=== PATIENT | male | born 1955 | race Caucasian/White ===

== ENCOUNTER 2020-11-22 00:32 | Outpatient (CLI) | payer MEDICARE, OTHER, SELFPAY ==
[2020-11-22 19:06] LABS: SARS-CoV-2 RNA PCR Negative
== END 2020-11-22 00:33 | disposition home or self-care (01) ==
LOC: ANHCOVIDDT 00:33
PROVIDERS: PCP Internal Medicine; Visit Provider Internal Medicine Cardiovascular Disease
DX: Z01.812 Encounter for preprocedural laboratory examination (principal); Z20.822 Contact with and (suspected) exposure to COVID-19
CPT/HCPCS: C9803; U0003

== ENCOUNTER 2020-11-25 05:16 | Day surgery (SDC) | payer MEDICARE, OTHER, SELFPAY ==
[2020-11-24 13:30] VITALS: BMI 25.2
[2020-11-25] VITALS (14 sets, daily range): BP systolic 121–170; BP diastolic 73–108; PULSE 41–91; RESP 10–18; TEMP 36.6; O2SAT 94–100; BMI 25.4
--- NOTE | 2020-11-25 10:18 | P.SEDATION_ITS ---
Moderate Sedation Note-Pt Data Patient Data Diagnosis: Aortic regurgitation Present Complaint: None History and physical examination up date: Patient is a very pleasant 65-year-old male with a history of syncope and near-syncope, incidental diagnosis of atrial fibrillation with RVR status post treadmill exercise stress test who underwent 2D echocardiogram which revealed [id number] eccentric turbulent aortic regurgitation referred for transesophageal echocardiogram for further clarification. Impression/plan: Unexpected extension [id number] aortic regurgitation on 2D echocardiogram History of recurrent near-syncope and syncope Paroxysmal atrial fibrillation Transesophageal echocardiogram for further clarification aortic regurgitation and associated aortic valve pathology. Procedure to be performed/Plan: Transesophageal echocardiogram Allergies Allergy/AdvReac Type Severity Reaction Status Date / Time No Known Allergies Allergy Verified 11/24/20 13:39 Home Medications Medication Instructions Recorded Confirmed Type aspirin 325 mg PO DAILY 11/24/20 11/24/20 History Current Medications: Active Medications Sodium Chloride (Normal Saline Iv) 1,000 mls @ 30 mls/hr IV CONT .Q24H QAMAR Sedation/Anesthesia: No previous sedation/anesthesia problems (including family history). [facility] Past Medical History Medical History Aortic regurgitation History of syncope Hypertension Social History Social History Smoking status: Never smoker Alcohol intake: current Drinks per week: 4 Alcohol use details: wine with dinner every other night Substance use: never Substance use type: does not use Living arrangements: with family Gender identity (if verbalized by the patient): Male Sexual Orientation (if Verbalized by the Patient): Straight or Heterosexual Spiritual care concerns: No Mod Sed Physical Exam Physical Exam Pre Procedural Exam: Normal: Appearance, Eyes, Ears, Nose, Neck (Supple, normal range of motion), Throat (Posterior hypopharynx clear, nonerythematous), Airway (Normal anatomy, no obstruction), Lungs (Clear to auscultation bilaterally), Heart Size, Heart Rate, Heart Rhythm, Neuro Exam, Abdomen, Liver, Kidneys, Extremities and Skin Hours since solid foods: 12 Hours since liquid intake: 12 Internal Medicine - PN: Obj Da Vital Signs Vital Signs: Vital Signs - 24 hr 11/25/20 09:07 Temperature 36.6 C Pulse Rate 68 Respiratory Rate 16 Blood Pressure 160/93 H Pulse Oximetry 100 Meds/Results Medications: Active Medications Generic Name Dose Route Start Last Admin Trade Name Freq PRN Reason Stop Dose Admin Sodium Chloride 1,000 mls @ 30 mls/hr 11/25/20 06:40 Normal Saline Iv IV CONT .Q24H QAMAR ASA Classification/Sedation ASA Classification/Sedation ASA Class: III Emergent: No Risks: Risks, benefits and alternatives explained and patient/family accepted plan for sedation. Patient re-evaluated immediately prior to sedation.
--- NOTE | 2020-11-25 10:20 | WPDHPUPDATE1 ---
History and Physical Update Update Date/Time: 11/25/20 10:20 History and Physical has been reviewed, including an updated exam of the patient. There are NO changes in the patient's condition. Risks, benefits, and alternatives have been discussed and questions answered. Patient agrees to proceed with procedure.
--- NOTE | 2020-11-25 11:30 | WPDTEECHO ---
[facility] TransEsophageal Echocardiogram Date of procedure: 11/25/20 Procedure Type: Transesophageal echocardiogram Diagnosis: Aortic regurgitation Indications: Aortic regurgitation Image Quality: Good Findings: Brief history present illness: Patient is a pleasant 65-year-old male with a history of newly discovered aortic regurgitation on echocardiogram, near-syncope and syncope, paroxysmal atrial fibrillation referred for transesophageal echocardiogram for further evaluation. Procedure in detail: After verbal and written informed consent was obtained the patient risks, benefits, and alternatives explained in detail the patient agreed to proceed with the plan of care as outlined above. The patient was evaluated at bedside in the [facility] procedure room. The posterior oropharynx, neck, and jaw angle all within normal limits on examination. Lungs were clear to auscultation. See pre-sedation note for further details The patient was then placed in the appropriate 30 to 45 degree angle supine position at a slight left lateral decubitus position. Patient was monitored throughout the study with telemetry, oxygen saturation, end-tidal CO2 monitoring, blood pressure, heart rate, and respirations. The posterior hypopharynx was then locally anesthetized using repeated administration of Hurricaine spray as well as gargled viscous lidocaine. After local anesthetic of the posterior hypopharynx was achieved and the oral bite block placed, moderate sedation was administered. After confirmation of adequate moderate sedation, the transesophageal echocardiogram probe was advanced through the oral bite block into the posterior hypopharynx and into the esophagus easily and without complication. Multiple, multiplanar echocardiographic images were obtained in multiple standard re- projections. Pulsed wave, continuous-wave, and color-flow Doppler were utilized in conjunction with this study. At the conclusion of the study, the transesophageal echocardiogram probe was removed easily and without complication. The patient tolerated the procedure well without difficulty. Patient was in sinus rhythm throughout the study. Prior to initiation of the procedure patient was noted to have intermittent sinus bradycardia down to the 30s, asymptomatic without prolonged pauses or high-grade AV block. Infrequent ventricular bigeminy also seen. Out of an abundance of caution anterior-posterior pacer pads were applied but were not required. Moderate Sedation/Anesthesia administration: Patient reports no prior problems with sedation/anesthesia. Please see pre-sedation noted for physical examination documentation. As noted above, after adequate local anesthesia of the posterior hypopharynx was achieved, a total of 4 mg intravenous Versed and a total of 100 mcg intravenous Fentanyl in multiple divided doses was administered for moderate sedation. Sedation start time was 1043 and end time was 1115 for a total intra-service/procedure face-face time of 32 minutes. Sedation was administered by a qualified/certified observer Loni Morgan RN under my supervision with intra-procedure [id number] observation and management throughout the entirety of the procedure. There were no other issues or complications and patient tolerated the procedure well. See post-anesthesia documentation. Findings: Left ventricular size and systolic function within normal limits without wall motion abnormalities with ejection fraction of 65%. Right ventricular size and systolic function within normal limits. Left atrial size is normal. Right atrial size is normal. There is a mobile echodensity within the right atrium consistent with Chiari network, normal variant. Interatrial septum is anatomically normal with evidence of L to R shunt with color-flow Doppler and faint R to L shunt with injection of agitated saline with and without Valsalva. This is consistent with an atrial septal defect. Mitral valve is anatomically normal wit
--- NOTE | 2020-11-25 12:04 | PC.NURSE ---
1200 Pt awake and alert. Taking liquids without any difficulty. VSS. Dr Crouch spoke with patient's on the phone.
== END 2020-11-25 12:40 | disposition home or self-care (01) ==
PROVIDERS: PCP Internal Medicine; Visit Provider Internal Medicine Cardiovascular Disease
PROC: (CPT 93312; principal; 2020-11-25 10:00)
DX: I35.1 Nonrheumatic aortic (valve) insufficiency (principal); Z79.82 Long term (current) use of aspirin; I10 Essential (primary) hypertension; Q21.1 Atrial septal defect; R00.1 Bradycardia, unspecified
CPT/HCPCS: 93312; 93320; 93325; J2250; J3010; J7030